=== PATIENT | female | born 1990 | race American Indian/Alaskan Native ===

== ENCOUNTER 2018-08-07 14:39 | Emergency (ER) | payer MEDICAID, OTHER ==
--- NOTE | 2018-08-07 15:02 | Emergency Department Report ---
Chief Complaint: Abdominal Pain Stated Complaint: N/V Time Seen by Provider: 08/07/18 14:58 - HPI History of Present Illness: N/V/D FOR 1 DAY LMP 07/08 HAPPENS ON OCCASION PER PT OCTOBER 2017 STARTED NO VAG BLEEDING NO VAG DC PMH ALLERGIES HEMORRHOIDS PSH NONE RX BENADRYL FOR ALLERGIES PCP NONE MSE COMPLTED - Exam Vital Signs: Vital Signs 08/07/18 14:40 Temperature 98.4 F Pulse Rate 88 Respiratory 16 Rate Blood Pressure 120/77 O2 Sat by Pulse 99 Oximetry MSE screening note: Focused history and physical exam performed. Due to findings the following was ordered: ED Disposition for MSE Condition: Stable Instructions: Abdominal Pain (ED)
[2018-08-07 15:36] LABS: Hematocrit 39.9 % (30.3-42.9); Hemoglobin 13.5 gm/dl (10.1-14.3); Mean Corpuscular HGB Conc 34 % (30-34); Mean Corpuscular Volume 88 fl (79-97); Platelet Count 280 K/mm3 (140-440); Red Blood Count 4.51 M/mm3 (3.65-5.03); Red Cell Distribution Width 13.9 % (13.2-15.2)
[2018-08-07 15:55] LABS: Alanine Aminotransferase 14 units/L (7-56); BUN/Creatinine Ratio 10; Blood Urea Nitrogen 7 mg/dL (7-17); Calcium 8.4 mg/dL (8.4-10.2); Hemolysis Index 7
[2018-08-07 16:33] LABS: HCG Qualitative,Urine Positive (Negative)
[2018-08-07 16:37] LABS: Bacteria,Urine 2+ /HPF (Negative); Bilirubin,Urine NEG (Negative); Blood,Urine MOD (Negative); Color,Urine Yellow (Yellow); Protein,Urine <15 mg/dL mg/dL (Negative)
--- NOTE | 2018-08-07 16:38 | Emergency Department Report ---
HPI - General Chief Complaint: Abdominal Pain Time Seen by Provider: 08/07/18 14:58 - HPI HPI: 27-year-old -Indian female presents to ED with nausea, vomiting, abdominal cramping, diarrhea, for one day. Hasn't taking any medications for symptoms. No fever, chills or night sweats. Pain is mild, 1/10, occasional. No vaginal bleeding. Has missed a cycle this month. ED Past Medical Hx - Past Medical History Previous Medical History?: No - Surgical History Past Surgical History?: No - Social History Smoking Status: Current Every Day Smoker Substance Use Type: Alcohol - Medications Home Medications: Home Medications Medication Instructions Recorded Confirmed Last Taken Type Acetaminophen/Codeine [Tylenol #3] 1 tab PO Q6H PRN #15 tab 05/05/15 Unknown Rx Ibuprofen [Motrin 800 MG tab] 800 mg PO Q8HR PRN #30 tablet 05/05/15 Unknown Rx Doxylamine Succinate/Vit B6 1 each PO QDAY PRN #30 tablet. 08/07/18 Unknown Rx [Diclegis Dr 10-10 mg Tablet] Pnv No.95/Ferrous Fum/Folic AC 1 each PO DAILY 30 Days #30 tablet 08/07/18 Unknown Rx [ Multivitamin Tablet] ED Review of Systems ROS: Stated complaint: N/V Other details as noted in HPI Comment: All other systems reviewed and negative Cardiovascular: denies: chest pain, palpitations, dyspnea on exertion Gastrointestinal: abdominal pain, nausea, vomiting, diarrhea. denies: constipation, hematemesis Physical Exam - Physical Exam Vital Signs: Vital Signs 08/07/18 14:40 Temperature 98.4 F Pulse Rate 88 Respiratory 16 Rate Blood Pressure 120/77 O2 Sat by Pulse 99 Oximetry Physical Exam: Physical Exam: - General Limitations: No Limitations General appearance: alert, in no apparent distress. - Head Head exam: Present: atraumatic, normocephalic - Eye Eye exam: Present: normal appearance - ENT ENT exam: Present: mucous membranes moist - Neck Neck exam: Present: normal inspection - Respiratory Respiratory exam: Present: normal lung sounds bilaterally. Absent: respiratory distress - Cardiovascular Cardiovascular Exam: Present: normal rhythm. Absent: systolic murmur, diastolic murmur, rubs, gallop - GI/Abdominal GI/Abdominal exam: Present: soft, normal bowel sounds - Extremities Exam Extremities exam: Present: normal inspection - Back Exam Back exam: Present: normal inspection - Neurological Exam Neurological exam: Present: alert, oriented X3 - Psychiatric Psychiatric exam: normal affect and mood - Skin Skin exam: Present: warm, dry, intact, normal color. Absent: rash ED Course Vital Signs 08/07/18 14:40 Temperature 98.4 F Pulse Rate 88 Respiratory 16 Rate Blood Pressure 120/77 O2 Sat by Pulse 99 Oximetry ED Medical Decision Making - Lab Data Result diagrams: 08/07/18 15:27 08/07/18 15:27 Critical care attestation.: If time is entered above; I have spent that time in minutes in the direct care of this critically ill patient, excluding procedure time. ED Disposition Clinical Impression: Early stage of Nausea & vomiting Qualifiers: Vomiting type: unspecified Vomiting Intractability: non-intractable Qualified Code(s): R11.2 - Nausea with vomiting, unspecified Disposition: DC-01 TO HOME OR SELFCARE Is pt being admited?: No Does the pt Need Aspirin: No Condition: Stable Instructions: Morning Sickness (ED), (ED), Abdominal Pain (ED) Prescriptions: Doxylamine Succinate/Vit B6 [Naz Campuzano 10-10 mg Tablet] 1 each PO QDAY PRN #30 tablet. PRN Reason: Nausea Pnv No.95/Ferrous Fum/Folic AC [ Multivitamin Tablet] 1 each PO DAILY 30 Days #30 tablet Referrals: HANH GLASS MD [Primary Care Provider] - 3-5 Days HANH RODRIGUEZ MD [Staff Physician] - 3-5 Days
[2018-08-07 21:11] VITALS: BP 120/77
== END 2018-08-07 17:03 | disposition home or self-care (01) ==
LOC: ED 14:39
DX: O26.851 Spotting complicating pregnancy, first trimester (principal); R11.2 Nausea with vomiting, unspecified; Z3A.00 Weeks of gestation of pregnancy not specified
CPT/HCPCS: 36415; 80053; 81001; 81025; 83690; 85027; 99283

== ENCOUNTER 2019-04-15 19:26 | Inpatient (IN) | payer OTHER ==
[2019-04-15] MEDS ORDERED: BUTORPHANOL 2 MG/1 ML INJ IV PRN (23:31)
[2019-04-15] MEDS ORDERED: LIDOCAINE (2%) 20 MG/1 ML VIAL 20 ML MDV INFILTRATI ONE (23:31)
[2019-04-15] MEDS ORDERED: fentaNYL 100 MCG/2 ML INJ IV PRN (23:31)
[2019-04-15] MEDS ORDERED: ONDANSETRON 4 MG/2 ML INJ IV PRN (23:31)
[2019-04-15] MEDS ORDERED: MINERAL OIL 30 ML ORAL LIQD PO PRN (23:31)
[2019-04-15] MEDS ORDERED: ePHEDrine SULFATE 50 MG/1 ML INJ IV PRN (23:31)
[2019-04-15] MEDS ORDERED: NALOXONE 0.4 MG/1 ML INJ IV PRN (23:31)
[2019-04-15] MEDS ORDERED: DINOPROSTONE 10 MG VAG SUPP VG ONE (23:31)
[2019-04-15] MEDS ORDERED: AMPICILLIN/NS 2 GM/100 ML 2 GM/100 ML BAG IV ONE (23:31)
[2019-04-15] MEDS ORDERED: TERBUTALINE 1 MG/1 ML INJ SUB-Q PRN (23:31)
[2019-04-15] MEDS ORDERED: TERBUTALINE 1 MG/1 ML INJ IVP PRN (23:31)
[2019-04-15] MEDS ORDERED: OXYTOCIN 20 UNIT/1000ML DRIP 20 UNITS/1,000 ML BAG IV SCH (23:45)
[2019-04-15] MEDS ORDERED: OXYTOCIN DRIP 30 UNITS/500 ML BAG IV SCH (23:45)
[2019-04-16] MEDS: LACTATED RINGERS 1,000 ML IV SCH ×2 (00:15→06:49)
[2019-04-16 00:18] LABS: Hematocrit 37.5 % (30.3-42.9); Hemoglobin 12.9 gm/dl (10.1-14.3); Mean Corpuscular HGB Conc 34 % (30-34); Mean Corpuscular Volume 83 fl (79-97); Platelet Count 308 K/mm3 (140-440); Red Cell Distribution Width 14.7 % (13.2-15.2)
--- NOTE | 2019-04-16 00:24 | History and Physical Report ---
History of Present Illness Date of examination: 04/16/19 Date of admission: 04/15/19 19:29 Chief complaint: Induction of Labor History of present illness: 28yo G 1 P 0 @ 40 weeks 5 days here for scheduled induction of labor for postdates. She reports occasional cramping and positive movements but denies vaginal bleeding or LOF. She is a [employer] patient who initiated care at 8 weeks gestation. 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 LABS: Opos, Antibody Screen neg, Pap Smear normal, RI, VDRL NR, HBsAg neg, HIV neg, MSAFP neg, Diabetes Screen 96, GC/CT/Trich neg, GBS pos. Past History Past Medical History: no pertinent history Past Surgical History: no surgical history Family/Genetic History: cancer (breast - maternal grandmother) Social history: single, lives with family, full code. denies: smoking, alcohol abuse, prescription drug abuse, IV drug use - Obstetrical History Expected Date of Delivery: 04/11/19 Actual Gestation: 40 Week(s) 5 Day(s) : 1 Para: 0 Hx # Term Pregnancies: 0 Number of Pregnancies: 0 Spontaneous Abortions: 0 Induced : 0 Number of Living Children: 0 Medications and Allergies Allergies Allergy/AdvReac Type Severity Reaction Status Date / Time No Known Allergies Allergy Verified 04/15/19 23:42 Home Medications Medication Instructions Recorded Confirmed Last Taken Type Acetaminophen/Codeine [Tylenol #3] 1 tab PO Q6H PRN #15 tab 05/05/15 Unknown Rx RX: Ibuprofen [Motrin 800 MG tab] 800 mg PO Q8HR PRN #30 tablet 05/05/15 Unknown Rx Doxylamine Succinate/Vit B6 1 each PO QDAY PRN #30 tablet. 08/07/18 Unknown Rx [Naz Campuzano 10-10 mg Tablet] Pnv No.95/Ferrous Fum/Folic AC 1 each PO DAILY 30 Days #30 tablet 08/07/18 Unknown Rx [ Multivitamin Tablet] Active Meds: Active Medications Butorphanol Tartrate (Stadol) 2 mg IV Q2H PRN PRN Reason: Pain , Severe (7-10) Ephedrine Sulfate (Ephedrine Sulfate) 10 mg IV Q2M PRN PRN Reason: Hypotension Fentanyl (Sublimaze) 100 mcg IV Q2H PRN PRN Reason: Labor Pain Oxytocin/Sodium Chloride (Pitocin/Ns 20 Unit/1000ml Drip) 20 units in 1,000 mls @ 125 mls/hr IV DIRECT OSCAR Oxytocin/Sodium Chloride (Pitocin/Ns 30 Unit/500ml) 30 units in 500 mls @ 1 mls/hr IV TITR OSCAR; Protocol Lactated Ringer's (Lactated Ringers) 1,000 mls @ 125 mls/hr IV DIRECT OSCAR Ampicillin Sodium (Ampicillin/Ns 2 Gm/100 Ml) 2 gm in 100 mls @ 100 mls/hr IV ONCE ONE; Protocol Stop: 04/16/19 00:30 Mineral Oil (Mineral Oil) 30 ml PO QHS PRN PRN Reason: Constipation Naloxone HCl (Naloxone) 0.1 mg IV Q2MIN PRN PRN Reason: Res Rate </= 8 or 02 SAT < 92% Ondansetron HCl (Zofran) 4 mg IV Q8H PRN PRN Reason: Nausea And Vomiting Terbutaline Sulfate (Brethine) 0.25 mg SUB-Q ONCE PRN PRN Reason: Hyperstimulation/Hypertonicity Terbutaline Sulfate (Brethine) 0.25 mg IVP ONCE PRN PRN Reason: Hyperstimulation/Hypertonicity Review of Systems All systems: negative - Vital Signs Vital signs: Vital Signs Pulse BP 94 H 123/79 04/15/19 21:20 04/15/19 21:20 Temp Pulse Resp BP Pulse Ox 97.8 F 102 H 20 117/64 92 04/15/19 22:20 04/15/19 22:55 04/15/19 22:20 04/15/19 22:20 04/15/19 22:55 - Physical Exam Genitourinary (Female): Positive: normal external genitalia, normal perenium. Negative: perineal/vulvar lesions Extremities: Positive: normal - Obstetrical FHR: auscultation normal, category 1 FHR comments: baseline 130, moderate variability, 15x15 accels, no decels Uterine Contraction Monitor Mode: External Cervical Dilatation: 1 Cervical Effacement Percentage: 30 station: -3 Results All other labs normal. Assessment and Plan - Patient Problems (1) 40 weeks gestation of Current Visit: Yes Status: Acute (2) Encounter for induction of labor Current Visit: Yes Status: Acute Plan to address problem: Admit to L&D with routine labor orders Cervidil for cervical ripening Oxytocin, if indicated Anticipate vaginal delivery (3) Group B Streptococcus carrier, +RV culture, currently Current Visit: Yes Status: Acute Plan to address problem: Start ampicillin for GBS prophylaxis when in active labor
--- NOTE | 2019-04-16 06:47 | Event Note ---
Date: 04/16/19 S: Pt in left semi-vazquez's position with mom at bedside. Denies pain at this time. O: Cervidil removed prematurely 4 hours post-insertion @ 3:00am due to tachysystole and intolerance. One dose of Terbulatine SQ given and intrauterine resuscitation measures implemented per protocol by Alejandra Madsen RN. FHR: baseline 135, moderate variability, 15x15 accels, occasional late decels Ctxs: q3-8min, palpate mild SVE 1.5/50/-3/I/Vtx A: IUP @ 40w6d IOL for postdates Category II FHR P: Continue current management Discussed plan of care with patient and her mom. COOK lindsay balloon inserted and low-dose Pitocin initiated for cervical ripening. Pt tolerated the procedure well. Anticipate vaginal delivery
[2019-04-16] MEDS ORDERED: OXYTOCIN DRIP 30 UNITS/500 ML BAG IV SCH (19:30)
[2019-04-16] MEDS ORDERED: METOCLOPRAMIDE 10 MG/2 ML INJ IV ONE ×2 (22:59→23:35)
[2019-04-16] MEDS ORDERED: BICITRA ORAL LIQD 30ML PO ONE ×2 (22:59→23:35)
[2019-04-16] MEDS ORDERED: FAMOTIDINE 20 MG/2 ML INJ IV ONE ×2 (22:59→23:35)
[2019-04-16] MEDS ORDERED: ceFAZolin/Water 2 GM/20 ML 2 GM/20 ML SYRINGE IV NR ×2 (23:00→23:45)
[2019-04-16] MEDS ORDERED: LACTATED RINGERS 1,000 ML IV SCH ×2 (23:00→23:45)
[2019-04-16] MEDS ORDERED: OXYTOCIN 20 UNIT/1000ML DRIP 20 UNITS/1,000 ML BAG IV SCH ×2 (23:00→23:45)
[2019-04-16] MEDS ORDERED: DEXMEDETOMIDINE 200 MCG/2 ML VIAL IV ONE (23:17)
[2019-04-16] MEDS ORDERED: HYDROmorphone 1 MG/1 ML INJ IV PRN (23:28)
[2019-04-16] MEDS ORDERED: ONDANSETRON 4 MG/2 ML INJ IV PRN (23:28)
--- NOTE | 2019-04-16 23:32 | Event Note ---
Date: 04/16/19 Pt was restarted on Pitocin and with pit at 1mU, pt again starting having decels with and after the contractions, which improved when pit was turned off. PT had similar issues earlier in the day. As a result of NRFHT remote from delivery, pt consented for Primary LTCS. Risks, benefits, alternatives d/w pt. All questions answered.
--- NOTE | 2019-04-16 23:34 | Anesthesia Consultation ---
Anesthesia Consult and Med Hx Date of service: 04/16/19 - Airway Anesthetic Teeth Evaluation: Good ROM Head & Neck: Adequate Mental/Hyoid Distance: Adequate Mallampati Class: Class III Intubation Access Assessment: Probably Good - Pulmonary Exam CTA: Yes - Cardiac Exam Cardiac Exam: RRR - Pre-Operative Health Status ASA Pre-Surgery Classification: ASA2, Emergency Proposed Anesthetic Plan: Spinal - Pre-Anesthesia Comment Pre-Anesthesia Comments: PSH: NONE - Pulmonary Hx Smoking: Yes (STOP 9 MONTHS AGO) Hx Asthma: No Hx Respiratory Symptoms: No SOB: No COPD: No Home Oxygen Therapy: No Hx Pneumonia: No Hx Sleep Apnea: No - Cardiovascular System Hx Hypertension: No Hx Coronary Artery Disease: No Hx Heart Attack/AMI: No Hx Angina: No Hx Percutaneous Transluminal Coronary Angioplasty (PTCA): No Hx Cardia Arrhythmia: No Hx Pacemaker: No Hx Internal Defibrillator: No Hx Valvular Heart Disease: No Hx Heart Murmur: No Hx Peripheral Vascular Disease: No - Central Nervous System Hx Neuromuscular Disorder: No Hx Seizures: No CVA: No Hx Back Pain: No Hx Psychiatric Problems: No - Gastrointestinal Hx Ulcer: No Hx Gastroesophageal Reflux Disease: Yes - Endocrine Hx Renal Disease: No Hx End Stage Renal Disease: No Hx Cirrhosis: No Hx Liver Disease: No Hx Insulin Dependent Diabetes: No Hx Non-Insulin Dependent Diabetes: No Hx Thyroid Disease: No Hx Hypothyroidism: No Hx Hyperthyroidism: No - Hematic Hx Anemia: No Hx Sickle Cell Disease: No - Other Systems Hx Alcohol Use: Yes (Occasionally prio to preg) Hx Substance Use: Yes (MARJUNE prio to ) Hx Cancer: Yes
--- NOTE | 2019-04-16 23:35 | Anesthesia Day of Surgery ---
Anesthesia Day of Surgery - Day of Surgery Patient Examined: Yes Patient H&P Reviewed: Yes Patient is NPO: Yes Beta Blockers: No Cardiac Clearance: No Pulmonary Clearance: No Mike's Test: N/A
[2019-04-16] MEDS ORDERED: ONDANSETRON 4 MG/2 ML INJ ONE (23:56)
[2019-04-17] MEDS ORDERED: ceFAZolin/STERILE WATER 2 GM/20 ML SYRINGE IV ONE (00:02)
[2019-04-17] MEDS ORDERED: WATER FOR IRRIG STERILE 1,500 ML BOTTLE IR ONE (00:03)
[2019-04-17] MEDS ORDERED: SODIUM CHLORIDE 0.9% IRR 1,500 ML BOTTLE IR ONE (00:03)
[2019-04-17] MEDS ORDERED: NALOXONE 0.4 MG/1 ML INJ IV PRN (00:48)
[2019-04-17] MEDS ORDERED: WITCH HAZEL/ GLYCERIN PAD TP PRN (00:48)
[2019-04-17] MEDS ORDERED: SENNOSIDES 8.6 MG TAB PO PRN (00:51)
[2019-04-17] MEDS ORDERED: MAGNESIUM HYDROXIDE (MOM) ORAL LIQD UDC PO PRN (00:51)
[2019-04-17] MEDS ORDERED: SIMETHICONE 80 MG CHEW TAB PO PRN (00:51)
--- NOTE | 2019-04-17 00:55 | Procedure Note ---
OB Delivery Note - Delivery Date of Delivery: 04/17/19 Surgeon: PINA DONG Estimated blood loss: other (800cc) - Section Preop diagnosis: nonreassuring FHR tracing Postop diagnosis: same section procedure: primary low transverse Disposition: PACU Complications: none Narrative: 28 yo at 40.6 weeks with NRFHT remote from delivery for Primary LTCS Patient taken to the operating room and prepped and draped in the usual fashion. Pfannenstiel skin incision was made and carried down to the underlying fascia. Fascia incised and the incision was extended bilaterally. Rectus fascia dissected off the rectus muscle both superiorly and inferiorly. Peritoneum identified tented up and entered. Peritoneal incision extended superiorly and inferiorly with good visualization of the bladder. Bladder blade was placed and the uterine incision was made and extended bilaterally. Clear fluid was noted. Baby was delivered in the usual fashion. Baby was vertex. Baby was bulb suctioned at the incision site and again after delivery. Delayed cord clamping was done. Cord was clamped and cut and handed off to awaiting team. The uterus was exteriorized and cleared of all clots and debris. Uterine incision closed with 0 Vicryl in a running locked fashion followed by second imbricating layer of 0 Vicryl. Good hemostasis noted. Uterus tubes and ovaries returned to the abdominal cavity. Gutters were cleared of all clots and debris. Pelvis was irrigated. Interceed placed over the uterine incision and over the lower uterine segment in the midline. The rectus fascia was reapproximated with 0 Vicryl in a running fashion. Subcutaneous tissues were irrigated and the skin was reapproximated with 4-0 Vicryl in a subcuticular fashion followed by Dermabond. Patient tolerated the procedure well. All instrument and lap counts were correct. Patient taken to the recovery room in stable condition. Findings: normal uterus, tubes and ovaries. Clear fluid. No nuchal cord. - Infant A at 1 minute: 8 at 5 minutes: 9 Infant Gender: Male (weight 5#9)
[2019-04-17] MEDS ORDERED: D5W/LACTATED RINGERS 1,000 ML IV SCH (01:00)
[2019-04-17] MEDS ORDERED: OXYTOCIN 20 UNIT/1000ML DRIP 20 UNITS/1,000 ML BAG IV SCH (01:00)
--- NOTE | 2019-04-17 01:02 | Post Anesthesia Evaluation ---
- Post Anesthesia Evaluation Patient Participated: Yes Airway Patent: Yes Stable Respiratory Function: Yes Nausea/Vomiting: No Temp > 96.8F: Yes Pain Manageable: Yes Adequeate Hydration: Yes Anesthesia Complications: No Block Receding Appropriately: Yes Patient on Ventilator: No
[2019-04-17 02:39] LABS: Basophils # (Auto) 0.1 K/mm3 (0.0-0.1); Basophils % (Auto) 0.7 % (0.0-1.8); Eosinophils # (Auto) 0.1 K/mm3 (0.0-0.4); Eosinophils % (Auto) 0.8 % (0.0-4.3); Hematocrit 33.8 % (30.3-42.9); Hemoglobin 11.4 gm/dl (10.1-14.3); Lymphocytes # (Auto) 1.7 K/mm3 (1.2-5.4); Lymphocytes % (Auto) 20.6 % (13.4-35.0); Mean Corpuscular HGB Conc 34 % (30-34); Mean Corpuscular Volume 83 fl (79-97); Monocytes # (Auto) 0.8 K/mm3 (0.0-0.8); Monocytes % (Auto) 10.6 % (0.0-7.3); Platelet Count 276 K/mm3 (140-440); Red Blood Count 4.07 M/mm3 (3.65-5.03); Red Cell Distribution Width 14.6 % (13.2-15.2)
[2019-04-17] MEDS: HYDROmorphone 1 MG/1 ML INJ IV PRN ×3 (04:07→12:41)
[2019-04-17] MEDS: KETOROLAC 30 MG/1 ML INJ IV PRN ×2 (06:45→20:35)
[2019-04-17] MEDS: oxyCODONE /ACETAMINOPHEN 5-325MG TAB PO PRN (17:07)
[2019-04-17] MEDS: LANOLIN/ZINC/DIMETHICONE (LANSINOH) 7 GM TP PRN (19:36)
[2019-04-18] MEDS: oxyCODONE /ACETAMINOPHEN 5-325MG TAB PO PRN ×3 (01:26→18:31)
[2019-04-18] MEDS: IBUPROFEN 800 MG TAB PO PRN ×3 (05:02→23:55)
--- NOTE | 2019-04-18 11:14 | Progress Note ---
<DEMARIO DELGADILLO - Last Filed: 04/18/19 11:15> Assessment and Plan - Patient Problems (1) S/P primary low transverse Current Visit: Yes Status: Acute Plan to address problem: POD 1 - stable Continue routine postop orders Ambulation encouraged Anticipate discharge in 24 hours (2) Single live Current Visit: Yes Status: Acute Subjective - Subjective Date of service: 04/18/19 Principal diagnosis: POD #1; s/p Primary LTCS Interval history: See H&P, Event Notes and OB Delivery Procedure Note Patient reports: appetite normal, voiding normally, pain well controlled, flatus, ambulating normally, no dizzy ambulation, no bowel movement [place]: doing well, other (breast and bottle feeding) Objective - Vital Signs Latest vital signs: Vital Signs Temp Pulse Resp BP BP Pulse Ox 04/18/19 07:31 98.0 F 84 20 107/63 97 04/18/19 01:35 97.8 F 84 18 118/79 99 04/17/19 21:25 98.4 F 92 H 18 132/78 96 04/17/19 17:07 20 04/17/19 16:12 99.0 F 93 H 18 123/77 98 04/17/19 12:41 20 Intake and Output 04/17/19 04/18/19 04/18/19 23:59 07:59 15:59 Intake Total 240 120 Balance 240 120 Intake: Oral 240 120 Other: Total, Intake Amount 240 120 # Voids Void 1 1 - Exam Abdomen: Present: normal appearance, soft Vulva: both: normal Uterus: Present: normal, firm, fundal height below umbilicus Extremities: Present: normal Incision: Present: normal, dry, intact, dressed Comments: scant lochia <PINA DONG - Last Filed: 04/18/19 17:18> Assessment and Plan - Patient Problems (1) S/P primary low transverse Current Visit: Yes Status: Acute Plan to address problem: Hgn for POD 1 is still pending Objective - Vital Signs Latest vital signs: Vital Signs Temp Pulse Resp BP BP Pulse Ox 04/18/19 15:45 97.8 F 83 20 122/75 96 04/18/19 14:18 20 04/18/19 12:59 20 04/18/19 07:31 98.0 F 84 20 107/63 97 04/18/19 01:35 97.8 F 84 18 118/79 99 04/17/19 21:25 98.4 F 92 H 18 132/78 96 Intake and Output 04/18/19 04/18/19 04/18/19 07:59 15:59 23:59 Intake Total 240 360 Balance 240 360 Intake: Oral 240 360 Other: Total, Intake Amount 240 240 # Voids Void 1 1
[2019-04-18 17:07] LABS: Hematocrit 33.5 % (30.3-42.9); Hemoglobin 11.3 gm/dl (10.1-14.3)
[2019-04-19] MEDS: oxyCODONE /ACETAMINOPHEN 5-325MG TAB PO PRN ×4 (01:08→21:39)
--- NOTE | 2019-04-19 09:55 | Progress Note ---
Assessment and Plan - Patient Problems (1) S/P primary low transverse Current Visit: Yes Status: Acute Plan to address problem: Continue routine PP orders Anticipate d/c home tomorrow Keep incision site clean and dry Subjective - Subjective Date of service: 04/19/19 Principal diagnosis: POD #2; s/p Primary LTCS Interval history: See admission H & P; OB operative note and PP progress notes Patient reports: appetite normal, voiding normally, pain well controlled, flatus, ambulating normally : doing well, bottle feeding (attempting , but not latching well) Objective - Vital Signs Latest vital signs: Vital Signs Temp Pulse Resp BP BP Pulse Ox 04/19/19 08:01 98.1 F 76 18 123/80 98 04/19/19 02:08 18 04/19/19 01:08 18 04/19/19 00:55 18 04/19/19 00:00 98.6 F 64 16 115/77 04/18/19 23:55 18 04/18/19 19:31 18 04/18/19 18:31 20 04/18/19 15:45 97.8 F 83 20 122/75 96 04/18/19 14:18 20 04/18/19 12:59 20 Intake and Output 04/18/19 04/19/19 04/19/19 23:59 07:59 15:59 Intake Total 420 740 Balance 420 740 Intake: Oral 120 440 Intake, Free Water 300 300 Other: Total, Intake Amount 120 240 # Voids Void 1 1 - Exam Breasts: Present: other (full in appearance, non-tender) Cardiovascular: Present: Regular rate Lungs: Present: Normal air movement Abdomen: Present: soft, tenderness Uterus: Present: firm, fundal height below umbilicus (U-2) Extremities: Present: normal Deep Tendon Reflex Grade: Normal +2 Incision: Present: dry, intact (glue intact, no signs of infections noted)
--- NOTE | 2019-04-19 09:58 | Discharge Summary ---
Providers - Providers Date of Admission: 04/15/19 19:29 Date of discharge: 04/20/19 (0900) Attending physician: BIENVENIDO MARCUS MD Primary care physician: BIENVENIDO MARCUS MD Hospitalization Reason for admission: induction of labor (secondary to post-date ), IUP at term Delivery: Procedure: primary low transverse (secondary to non-reasuring FHTs) Episiotomy: none Laceration: none Incision: dry, intact Other procedures: none complications: none Discharge diagnosis: other (S/P primary low-transverse C/S) [place] baby: male Hospital course: See admission H & P; OB operative note and PP progress notes Condition at discharge: Good Disposition: DC-01 TO HOME OR SELFCARE - Discharge Diagnoses (1) S/P primary low transverse Status: Acute Plan - Discharge Medications Prescriptions: Ibuprofen [Motrin 600 MG tab] 600 mg PO Q6H PRN #30 tablet PRN Reason: Pain Acetaminophen/Codeine [Tylenol /Codeine # 3 tab] 1 tab PO Q4HR PRN #30 tablet PRN Reason: Pain - Provider Discharge Summary Activity: routine, no sex for 6 weeks, no heavy lifting 4 weeks, no strenuous exercise Diet: routine Instructions: routine Additional instructions: [] Smoking cessation referral if applicable(refer to patient education folder for contact #) [] Refer to [facility]'s [facility] Center Booklet Call your doctor immediately for: * Fever > 100.5 * Heavy vaginal bleeding ( >1 pad per hour) * Severe persistent headache * Shortness of breath * Reddened, hot, painful area to leg or breast * Drainage or odor from incision. * Keep incision clean and dry at all times and follow doctor's instructions r egarding bathing/showering - Follow up plan Follow up: BIENVENIDO MARCUS MD [Primary Care Provider] - 7 Days
[2019-04-19] MEDS: IBUPROFEN 800 MG TAB PO PRN ×2 (10:02→19:57)
[2019-04-20] MEDS: IBUPROFEN 800 MG TAB PO PRN (02:05)
[2019-04-20] MEDS: oxyCODONE /ACETAMINOPHEN 5-325MG TAB PO PRN (04:24)
[2019-04-20] MEDS: LANOLIN/ZINC/DIMETHICONE (LANSINOH) 7 GM TP PRN (09:30)
[2019-04-20 10:59] VITALS: BP 116/62
== END 2019-04-20 10:59 | disposition home or self-care (01) | DRG 765 ==
LOC: TRG 19:26 → LD 19:29 → OB 04-17 04:01
PROVIDERS: ADMIT Obstetrics & Gynecology; ATTEND Obstetrics & Gynecology
PROC: 10D00Z1 Extraction of Products of Conception, Low, Open Approach (ICD-10-PCS; principal; 2019-04-17)
DX: O76 Abnormality in fetal heart rate and rhythm complicating labor and delivery (principal); O99.324 Drug use complicating childbirth; O98.52 Other viral diseases complicating childbirth; O99.62 Diseases of the digestive system complicating childbirth; O48.0 Post-term pregnancy; K21.9 Gastro-esophageal reflux disease without esophagitis; O99.314 Alcohol use complicating childbirth; F12.90 Cannabis use, unspecified, uncomplicated; B00.9 Herpesviral infection, unspecified; O99.824 Streptococcus B carrier state complicating childbirth; Z80.3 Family history of malignant neoplasm of breast; Z3A.40 40 weeks gestation of pregnancy; Z87.891 Personal history of nicotine dependence; Z79.899 Other long term (current) drug therapy
CPT/HCPCS: 36415; 59200; 85014; 85018; 85025; 85027; 86592; 86850; 86900; 86901; G0378; A6250; C1765; J0595; J0690; J1170; J1885; J2405; J2590; J2765; J3010; J3105; J3490; J7120

== ENCOUNTER 2019-07-02 12:49 | Emergency (ER) | payer OTHER ==
[2019-07-02 14:35] VITALS: BP 144/87
--- NOTE | 2019-07-02 17:10 | Emergency Department Report ---
Chief Complaint: Upper Respiratory Infection Stated Complaint: SNEEZING,RUNNING NOSE Time Seen by Provider: 07/02/19 16:56 - HPI History of Present Illness: 28-year-old -Citizen Of [place] female presents to the emergency room complaining of runny nose and sneezing since yesterday. Patient states that she has tried vhtg-xqu-qivzxaj medication which is helped. Patient states that she went to work today and her job sent her home because she was sneezing had a runny nose. Patient denies any fever chills no nausea no vomiting no chest pain shortness of breathing or diarrhea. Patient denies any recent travels. - Exam Vital Signs: Vital Signs 07/02/19 14:34 Temperature 99.2 F Pulse Rate 95 H Respiratory 18 Rate Blood Pressure 144/87 O2 Sat by Pulse 100 Oximetry Physical Exam: Gen: alert oriented NAD Cardic: regular rate and rhythm no murmurs appreciated Resp: Clear to auscultation bilateral no wheezing no rales or rhonchi. Abdomen: Soft nontender nondistended normal bowel sounds. MSE screening note: Focused history and physical exam performed. Due to findings the following was ordered: 28-year-old -Citizen Of [place] female presents to the emergency room complaining of runny nose and sneezing since yesterday. Patient states that she has tried jgim-zse-joldiym medication which is helped. Patient states that she went to work today and her job sent her home because she was sneezing had a runny nose. Patient denies any fever chills no nausea no vomiting no chest pain shortness of breathing or diarrhea. Patient denies any recent travels. Recommend qvet-enj-nystjxk Claritin or Zyrtec's Flonase and increase fluid intake. ED Disposition for MSE Disposition: MED SCREENING EXAM-LEFT Is pt being admited?: No Does the pt Need Aspirin: No Condition: Stable Additional Instructions: Recommend aupw-brh-vzpftiv Claritin or Zyrtec's Flonase and increase fluid intake. Referrals: PRIMARY CARE, [Primary Care Provider] - 3-5 Days Forms: Work/School Release Form(ED)
== END 2019-07-02 17:10 | disposition left against medical advice (07) ==
LOC: ED 12:49
DX: R06.7 Sneezing (principal); R09.89 Other specified symptoms and signs involving the circulatory and respiratory systems
CPT/HCPCS: 99282